=== PATIENT | female | born 1935 | race Caucasian/White ===

== ENCOUNTER 2018-08-31 16:06 | Inpatient (IN) ==
[2018-08-31] MEDS ORDERED: MAGNESIUM HYDROXIDE SUSP 30 ML UDCUP PO PRN (16:15)
[2018-08-31] MEDS ORDERED: ACETAMINOPHEN 325 MG TABLET PO PRN (16:15)
[2018-08-31] MEDS ORDERED: MORPHINE 4 MG/1 ML VIAL IV PRN (16:15)
[2018-08-31] MEDS ORDERED: traMADol 50 MG TABLET PO PRN (16:15)
[2018-08-31] MEDS: SODIUM CHLORIDE 0.45% 1,000 ML IV SCH (19:08)
[2018-08-31] MEDS: PANTOPRAZOLE 40 MG TABLET PO SCH (19:09)
[2018-08-31 19:29] LABS: Basophils # 0.1 10*3/uL (0.0-0.2); Basophils % 1.1 % (0.0-0.8); Eosinophils # 0.2 10*3/uL (0.0-0.87); Hematocrit 33.1 VOL% (35.7-47.0); Hemoglobin 9.8 GM/DL (12.0-16.0); Immature Granulocytes % 0.4 %; Immature Granulocytes Absolute 0.05 #; Lymphocytes # 3.1 10*3/uL (1.4-4.0); Lymphocytes % 27.1 % (21.3-54.2); Mean Corpuscular HGB Conc 29.6 GM/DL (32-36); Mean Corpuscular Volume 85.8 FL (87-102); Mean Platelet Volume 11.4 FL (9.6-12.0); Monocytes % 10.6 % (1.7-12.7); Neutrophils % 58.8 % (38.7-73.9); Platelet Count 343 T/CUMM (130-400); Red Blood Count 3.86 MC/CUMM (3.8-5.5); Red Cell Distribution Width 20.2 % (9.3-17.3); White Blood Count 11.4 T/CUMM (4-12)
[2018-08-31 19:42] LABS: PT Patient Result 21.5 SECS
[2018-08-31 19:54] LABS: Albumin 2.8 G/DL (3.4-5.0); Bilirubin,Total 0.8 MG/DL (0.2-1.0); Calcium 8.4 MG/DL (8.5-10.1); Osmolality,Calculated 284.3 MOS/KG (273-304); Total Protein 7.1 G/DL (6.4-8.3)
[2018-08-31] MEDS: GABAPENTIN 400 MG CAPSULE PO SCH (21:08)
[2018-08-31] MEDS: CALCIUM (CARBONATE) 500 MG TABLET PO SCH (21:08)
[2018-08-31] MEDS: SOTALOL 80 MG TABLET PO SCH (21:09)
[2018-08-31] MEDS: ATORVASTATIN 40 MG TABLET PO SCH (21:09)
[2018-08-31] MEDS: AMITRIPTYLINE 50 MG TABLET PO SCH (21:09)
[2018-08-31] MEDS: VANCOMYCIN INJ 1,000 MG in SODIUM CHLORIDE 0.9% 250 ML IV SCH (22:50)
[2018-08-31 23:31] LABS: Apearance,Urine Slightly Hazy (Clear); Bacteria,Urine Occasional /HPF (Few); Bilirubin,Urine Negative (Negative); Blood, Urine Negative (Negative); Glucose,Urine (UA) Negative (Negative); Hyaline Casts,Urine 5 /LPF (0-3); Ketones,Urine Negative (Negative); Mucus,Urine Occasional /LPF (Occasional); Nitrite,Urine Negative (Negative); Protein,Urine 100 MG/DL; RBC,Urine 5 /HPF (0-4); Renal Epithelial Cells,Urine Occasional /HPF (<1); Squamous Epithelial Cell,Urine Occasional /HPF (0-10); Urine Color Yellow (Yellow); Urine Specific Gravity 1.012 (1.001-1.035); Urine Urobilinogen < 2.0 EU/DL (0.2-1.0); WBC,Urine 18 /HPF (0-6)
[2018-09-01] MEDS: SODIUM CHLORIDE 0.45% 1,000 ML IV SCH ×2 (04:59→13:29)
[2018-09-01 07:38] LABS: INR 2.1
[2018-09-01 07:46] LABS: PT Patient Result 22.7 SECS
[2018-09-01 08:15] LABS: Calcium 8.2 MG/DL (8.5-10.1); Osmolality,Calculated 284.3 MOS/KG (273-304); Risk Ratio 3.14; VLDL CHOLESTEROL 22.8 MG/DL
[2018-09-01] MEDS: SOTALOL 80 MG TABLET PO SCH (13:26)
[2018-09-01] MEDS: DILTIAZEM CD 240 MG CAPSULE PO SCH (13:26)
[2018-09-01] MEDS: GABAPENTIN 400 MG CAPSULE PO SCH (13:34)
[2018-09-01] MEDS: PANTOPRAZOLE 40 MG TABLET PO SCH (13:34)
[2018-09-01] MEDS: CALCIUM (CARBONATE) 500 MG TABLET PO SCH (13:34)
[2018-09-01] MEDS: MULTIVITAMIN (CENTRUM) TABLET PO SCH (13:34)
[2018-09-01] MEDS: RALOXIFENE 60 MG TABLET PO SCH (13:34)
[2018-09-01] MEDS: FUROSEMIDE 40 MG TABLET PO SCH (13:34)
[2018-09-01] MEDS ORDERED: LIDOCAINE 1% 20 ML VIAL ONE (14:16)
[2018-09-01] MEDS ORDERED: LACTATED RINGERS 1,000 ML IV ONE (16:16)
[2018-09-01] MEDS ORDERED: PROPOFOL 200 MG/20 ML VIAL IV ONE (16:16)
[2018-09-01] MEDS ORDERED: ETOMIDATE 40 MG/20 ML VIAL IV ONE (16:16)
[2018-09-01] MEDS: HYDROmorphone 2 MG/1 ML VIAL IV PRN (17:03)
[2018-09-01] MEDS: VANCOMYCIN INJ 1,000 MG in SODIUM CHLORIDE 0.9% 250 ML IV SCH (21:44)
[2018-09-02] MEDS: AMITRIPTYLINE 50 MG TABLET PO SCH ×2 (00:45→21:46)
[2018-09-02] MEDS: SOTALOL 80 MG TABLET PO SCH ×3 (00:45→21:36)
[2018-09-02] MEDS: ATORVASTATIN 40 MG TABLET PO SCH ×2 (00:55→21:36)
[2018-09-02] MEDS: GABAPENTIN 400 MG CAPSULE PO SCH ×3 (00:55→21:47)
[2018-09-02] MEDS: CALCIUM (CARBONATE) 500 MG TABLET PO SCH ×3 (00:55→21:36)
[2018-09-02] MEDS: SODIUM CHLORIDE 0.45% 1,000 ML IV SCH ×2 (00:56→23:42)
[2018-09-02 04:41] LABS: Basophils # 0.1 10*3/uL (0.0-0.2); Basophils % 0.6 % (0.0-0.8); Eosinophils # 0.3 10*3/uL (0.0-0.87); Eosinophils % 2.4 % (0.00-10.9); Hematocrit 29.7 VOL% (35.7-47.0); Hemoglobin 8.9 GM/DL (12.0-16.0); Immature Granulocytes % 0.4 %; Immature Granulocytes Absolute 0.06 #; Lymphocytes # 2.4 10*3/uL (1.4-4.0); Lymphocytes % 17.8 % (21.3-54.2); Mean Corpuscular Volume 85.6 FL (87-102); Mean Platelet Volume 11.5 FL (9.6-12.0); Monocytes % 11.7 % (1.7-12.7); Neutrophils % 67.1 % (38.7-73.9); Platelet Count 322 T/CUMM (130-400); Red Blood Count 3.47 MC/CUMM (3.8-5.5); Red Cell Distribution Width 19.6 % (9.3-17.3); White Blood Count 13.6 T/CUMM (4-12)
[2018-09-02] MEDS: HYDROmorphone 2 MG/1 ML VIAL IV PRN (04:44)
[2018-09-02 04:50] LABS: INR 1.6; PT Patient Result 17.8 SECS
[2018-09-02 05:00] LABS: Calcium 8.4 MG/DL (8.5-10.1); Osmolality,Calculated 280.4 MOS/KG (273-304)
[2018-09-02] MEDS ORDERED: CLINDAMYCIN INJ 600 MG in PREMIX 1 EACH IV SCH (09:00)
[2018-09-02] MEDS: ONDANSETRON 4 MG/2 ML VIAL IV PRN ×2 (12:27→17:30)
[2018-09-02] MEDS: ASPIRIN EC 325 MG TABLET PO SCH (14:41)
[2018-09-02] MEDS: DILTIAZEM CD 240 MG CAPSULE PO SCH ×2 (14:42→16:28)
[2018-09-02] MEDS: MULTIVITAMIN (CENTRUM) TABLET PO SCH (14:42)
[2018-09-02] MEDS: FUROSEMIDE 40 MG TABLET PO SCH (14:42)
[2018-09-02] MEDS: RALOXIFENE 60 MG TABLET PO SCH (14:42)
[2018-09-02] MEDS: PANTOPRAZOLE 40 MG TABLET PO SCH (14:43)
[2018-09-02] MEDS ORDERED: MORPHINE 4 MG/1 ML VIAL IV PRN ×2 (15:37)
[2018-09-02] MEDS ORDERED: IBUPROFEN 400 MG TABLET PO PRN (15:37)
[2018-09-02] MEDS: cefTRIAXone 1,000 MG in SYRINGE 1 EACH IV SCH (16:28)
[2018-09-02] MEDS: WARFARIN 2.5 MG TABLET PO SCH (17:28)
[2018-09-03] MEDS: AMITRIPTYLINE 50 MG TABLET PO SCH ×2 (00:11→20:41)
[2018-09-03 06:01] LABS: Basophils # 0.1 10*3/uL (0.0-0.2); Basophils % 0.5 % (0.0-0.8); Eosinophils # 0.1 10*3/uL (0.0-0.87); Eosinophils % 0.6 % (0.00-10.9); Hematocrit 30.5 VOL% (35.7-47.0); Immature Granulocytes % 0.5 %; Immature Granulocytes Absolute 0.07 #; Lymphocytes # 2.9 10*3/uL (1.4-4.0); Lymphocytes % 20.5 % (21.3-54.2); Mean Corpuscular HGB Conc 29.5 GM/DL (32-36); Mean Corpuscular Volume 86.2 FL (87-102); Monocytes % 9.5 % (1.7-12.7); Neutrophils % 68.4 % (38.7-73.9); Platelet Count 358 T/CUMM (130-400); Red Blood Count 3.54 MC/CUMM (3.8-5.5); Red Cell Distribution Width 19.5 % (9.3-17.3); White Blood Count 13.9 T/CUMM (4-12)
[2018-09-03 06:12] LABS: INR 1.9
[2018-09-03 06:21] LABS: PT Patient Result 20.7 SECS
[2018-09-03] MEDS: ASPIRIN EC 325 MG TABLET PO SCH (08:17)
[2018-09-03] MEDS: CALCIUM (CARBONATE) 500 MG TABLET PO SCH ×2 (08:17→20:41)
[2018-09-03] MEDS: PANTOPRAZOLE 40 MG TABLET PO SCH (08:18)
[2018-09-03] MEDS: DILTIAZEM CD 240 MG CAPSULE PO SCH (08:18)
[2018-09-03] MEDS: SOTALOL 80 MG TABLET PO SCH ×2 (08:18→20:40)
[2018-09-03] MEDS: MULTIVITAMIN (CENTRUM) TABLET PO SCH (08:18)
[2018-09-03] MEDS: FUROSEMIDE 40 MG TABLET PO SCH (08:18)
[2018-09-03] MEDS: GABAPENTIN 400 MG CAPSULE PO SCH ×2 (08:19→20:41)
[2018-09-03] MEDS: cefTRIAXone 1,000 MG in SYRINGE 1 EACH IV SCH (08:19)
[2018-09-03] MEDS: RALOXIFENE 60 MG TABLET PO SCH (08:19)
[2018-09-03] MEDS: SODIUM CHLORIDE 0.45% 1,000 ML IV SCH (09:29)
[2018-09-03] MEDS: WARFARIN 2.5 MG TABLET PO SCH (17:04)
[2018-09-03] MEDS: ATORVASTATIN 40 MG TABLET PO SCH (20:41)
[2018-09-04 05:52] LABS: INR 2.1
[2018-09-04 05:55] LABS: PT Patient Result 22.3 SECS
[2018-09-04 06:05] LABS: Albumin 2.1 G/DL (3.4-5.0); Bilirubin,Total 0.8 MG/DL (0.2-1.0); Calcium 8.5 MG/DL (8.5-10.1); Osmolality,Calculated 281.1 MOS/KG (273-304); Total Protein 5.8 G/DL (6.4-8.3)
[2018-09-04 07:47] VITALS: BP 107/58
[2018-09-04] MEDS: cefTRIAXone 1,000 MG in SYRINGE 1 EACH IV SCH (09:13)
[2018-09-04] MEDS: RALOXIFENE 60 MG TABLET PO SCH (09:14)
[2018-09-04] MEDS: DILTIAZEM CD 240 MG CAPSULE PO SCH (09:14)
[2018-09-04] MEDS: GABAPENTIN 400 MG CAPSULE PO SCH (09:14)
[2018-09-04] MEDS: ASPIRIN EC 325 MG TABLET PO SCH (09:15)
[2018-09-04] MEDS: PANTOPRAZOLE 40 MG TABLET PO SCH (09:15)
[2018-09-04] MEDS: MULTIVITAMIN (CENTRUM) TABLET PO SCH (09:15)
[2018-09-04] MEDS: FUROSEMIDE 40 MG TABLET PO SCH (09:15)
[2018-09-04] MEDS: CALCIUM (CARBONATE) 500 MG TABLET PO SCH (09:15)
[2018-09-07] MEDS ORDERED: WARFARIN 2.5 MG TABLET PO SCH (18:00)
== END 2018-09-04 10:55 | disposition home health service (06) | DRG 605 ==
LOC: N.2E → OBSVTOIN 16:57
PROVIDERS: ADMIT Family Medicine; ATTEND Family Medicine

== ENCOUNTER 2018-11-15 10:28 | Inpatient (IN) ==
[2018-11-15] MEDS ORDERED: SODIUM CHLORIDE 0.9% 500 ML IV STA (10:48)
[2018-11-15 11:03] LABS: Basophils % 0.4 % (0.0-0.8); Eosinophils # 0.1 10*3/uL (0.0-0.87); Eosinophils % 0.8 % (0.00-10.9); Hematocrit 33.8 VOL% (35.7-47.0); Hemoglobin 10.5 GM/DL (12.0-16.0); Immature Granulocytes % 0.4 %; Immature Granulocytes Absolute 0.04 #; Lymphocytes # 2.2 10*3/uL (1.4-4.0); Lymphocytes % 21.1 % (21.3-54.2); Mean Corpuscular HGB Conc 31.1 GM/DL (32-36); Mean Corpuscular Volume 85.4 FL (87-102); Mean Platelet Volume 12.5 FL (9.6-12.0); Neutrophils % 64.3 % (38.7-73.9); Platelet Count 194 T/CUMM (130-400); Red Blood Count 3.96 MC/CUMM (3.8-5.5); White Blood Count 10.3 T/CUMM (4-12)
[2018-11-15 11:11] LABS: INR 1.4; PT Patient Result 15.1 SECS; Partial Thromboplastin Time 32.7 SECS (0-40)
[2018-11-15 11:23] LABS: Alanine Aminotransferase 18 U/L (13-56); Albumin 2.2 G/DL (3.4-5.0); Alkaline Phosphatase 83 U/L (45-117); Aspartate Amino Transferase 27 U/L (0-37); Bilirubin,Total < 0.39 MG/DL (0.2-1.0); Blood Urea Nitrogen 46 MG/DL (7-18); Calcium 8.4 MG/DL (8.5-10.1); Glucose 91 MG/DL (74-106); Osmolality,Calculated 286.7 MOS/KG (273-304); Total Protein 5.7 G/DL (6.4-8.3)
[2018-11-15 11:56] LABS: Apearance,Urine Slightly Hazy (Clear); Bilirubin,Urine Negative (Negative); Blood, Urine Negative (Negative); Glucose,Urine (UA) Negative (Negative); Hyaline Casts,Urine 22 /LPF (0-3); Ketones,Urine Negative (Negative); Mucus,Urine Occasional /LPF (Occasional); Nitrite,Urine Negative (Negative); Protein,Urine 100 MG/DL; RBC,Urine 1 /HPF (0-4); Squamous Epithelial Cell,Urine Occasional /HPF (0-10); Urine Color Yellow (Yellow); Urine Specific Gravity 1.016 (1.001-1.035); Urine Urobilinogen < 2.0 EU/DL (0.2-1.0); WBC,Urine 2 /HPF (0-6)
[2018-11-15] MEDS ORDERED: cefTRIAXone 1,000 MG in SODIUM CHLORIDE 0.9% 100 ML IV STA (12:01)
[2018-11-15] MEDS ORDERED: ONDANSETRON 4 MG/2 ML VIAL IV PRN (12:07)
[2018-11-15] MEDS ORDERED: ACETAMINOPHEN 325 MG TABLET PO PRN (12:07)
[2018-11-15 12:19] LABS: Sedimentation Rate-Westergren 74 MM/HR (0-30)
[2018-11-15] MEDS: SODIUM CHLORIDE 0.45% 1,000 ML IV SCH (15:17)
[2018-11-15] MEDS: WARFARIN 2.5 MG TABLET PO SCH (18:23)
[2018-11-15] MEDS: ATORVASTATIN 40 MG TABLET PO SCH (20:39)
[2018-11-15] MEDS: GABAPENTIN 400 MG CAPSULE PO SCH (20:39)
[2018-11-15] MEDS: CALCIUM (CARBONATE) 500 MG TABLET PO SCH (20:39)
[2018-11-15] MEDS: SOTALOL 80 MG TABLET PO SCH (20:40)
[2018-11-15] MEDS: POTASSIUM CHLORIDE 10 MEQ TABLET PO SCH (20:40)
[2018-11-16] MEDS: GABAPENTIN 400 MG CAPSULE PO SCH ×2 (08:28→21:03)
[2018-11-16] MEDS: RALOXIFENE 60 MG TABLET PO SCH (08:29)
[2018-11-16] MEDS: FUROSEMIDE 20 MG TABLET PO SCH (08:29)
[2018-11-16] MEDS: DILTIAZEM CD 240 MG CAPSULE PO SCH (08:29)
[2018-11-16] MEDS: ASPIRIN EC 325 MG TABLET PO SCH (08:30)
[2018-11-16] MEDS: CALCIUM (CARBONATE) 500 MG TABLET PO SCH ×2 (08:30→21:19)
[2018-11-16] MEDS: MULTIVITAMIN (CENTRUM) TABLET PO SCH (08:31)
[2018-11-16] MEDS: PANTOPRAZOLE 40 MG TABLET PO SCH (08:31)
[2018-11-16] MEDS: SODIUM CHLORIDE 0.45% 1,000 ML IV SCH (08:31)
[2018-11-16] MEDS: SOTALOL 80 MG TABLET PO SCH ×2 (08:31→21:03)
[2018-11-16] MEDS: cefTRIAXone 1,000 MG in SYRINGE 1 EACH IV SCH (11:51)
[2018-11-16] MEDS: WARFARIN 2.5 MG TABLET PO SCH ×2 (18:18→18:23)
[2018-11-16] MEDS: ATORVASTATIN 40 MG TABLET PO SCH (21:03)
[2018-11-16] MEDS: POTASSIUM CHLORIDE 10 MEQ TABLET PO SCH (21:03)
[2018-11-16] MEDS: ZINC OXIDE PASTE 113 GM TUBE TOP SCH (21:21)
[2018-11-17] MEDS: SODIUM CHLORIDE 0.45% 1,000 ML IV SCH ×2 (04:45→21:40)
[2018-11-17 05:12] LABS: Basophils # 0.1 10*3/uL (0.0-0.2); Basophils % 0.5 % (0.0-0.8); Eosinophils # 0.3 10*3/uL (0.0-0.87); Hematocrit 30.1 VOL% (35.7-47.0); Hemoglobin 9.3 GM/DL (12.0-16.0); Immature Granulocytes % 0.4 %; Immature Granulocytes Absolute 0.04 #; Lymphocytes # 2.5 10*3/uL (1.4-4.0); Lymphocytes % 22.9 % (21.3-54.2); Mean Corpuscular HGB Conc 30.9 GM/DL (32-36); Mean Corpuscular Volume 84.8 FL (87-102); Mean Platelet Volume 12.5 FL (9.6-12.0); Monocytes % 14.5 % (1.7-12.7); NRBC # 0.02 10*3/uL; Neutrophils % 58.7 % (38.7-73.9); Platelet Count 276 T/CUMM (130-400); Red Blood Count 3.55 MC/CUMM (3.8-5.5); Red Cell Distribution Width 18.8 % (9.3-17.3)
[2018-11-17 05:51] LABS: Osmolality,Calculated 278.1 MOS/KG (273-304)
[2018-11-17 06:05] LABS: Thyroid Stimulating Hormone 2.19 uIU/ml (0.358-3.74)
[2018-11-17 08:05] LABS: INR 1.5; PT Patient Result 16.7 SECS
[2018-11-17] MEDS: FUROSEMIDE 20 MG TABLET PO SCH (08:53)
[2018-11-17] MEDS: MULTIVITAMIN (CENTRUM) TABLET PO SCH (08:53)
[2018-11-17] MEDS: RALOXIFENE 60 MG TABLET PO SCH (08:53)
[2018-11-17] MEDS: CALCIUM (CARBONATE) 500 MG TABLET PO SCH ×2 (08:54→21:39)
[2018-11-17] MEDS: ASPIRIN EC 325 MG TABLET PO SCH (08:54)
[2018-11-17] MEDS: PANTOPRAZOLE 40 MG TABLET PO SCH (08:54)
[2018-11-17] MEDS: SOTALOL 80 MG TABLET PO SCH ×2 (08:54→21:40)
[2018-11-17] MEDS: DILTIAZEM CD 240 MG CAPSULE PO SCH (08:55)
[2018-11-17] MEDS: GABAPENTIN 400 MG CAPSULE PO SCH ×2 (08:56→21:39)
[2018-11-17] MEDS: ZINC OXIDE PASTE 113 GM TUBE TOP SCH ×2 (09:03→21:40)
[2018-11-17] MEDS: cefTRIAXone 1,000 MG in SYRINGE 1 EACH IV SCH (09:03)
[2018-11-17] MEDS: WARFARIN 2.5 MG TABLET PO SCH (17:50)
[2018-11-17] MEDS: ATORVASTATIN 40 MG TABLET PO SCH (21:39)
[2018-11-17] MEDS: POTASSIUM CHLORIDE 10 MEQ TABLET PO SCH (21:39)
[2018-11-18 02:53] LABS: Basophils # 0.1 10*3/uL (0.0-0.2); Basophils % 0.4 % (0.0-0.8); Eosinophils # 0.4 10*3/uL (0.0-0.87); Eosinophils % 3.3 % (0.00-10.9); Hemoglobin 9.6 GM/DL (12.0-16.0); Immature Granulocytes % 0.3 %; Immature Granulocytes Absolute 0.03 #; Lymphocytes # 2.6 10*3/uL (1.4-4.0); Lymphocytes % 22.2 % (21.3-54.2); Mean Corpuscular Volume 83.1 FL (87-102); Mean Platelet Volume 12.1 FL (9.6-12.0); Monocytes % 11.6 % (1.7-12.7); NRBC # 0.04 10*3/uL; Neutrophils % 62.2 % (38.7-73.9); Platelet Count 312 T/CUMM (130-400); Red Blood Count 3.61 MC/CUMM (3.8-5.5); Red Cell Distribution Width 18.6 % (9.3-17.3); White Blood Count 11.7 T/CUMM (4-12)
[2018-11-18] MEDS: GABAPENTIN 400 MG CAPSULE PO SCH ×2 (08:40→21:14)
[2018-11-18] MEDS: ASPIRIN EC 325 MG TABLET PO SCH (08:41)
[2018-11-18] MEDS: CALCIUM (CARBONATE) 500 MG TABLET PO SCH ×2 (08:41→21:14)
[2018-11-18] MEDS: FUROSEMIDE 20 MG TABLET PO SCH (08:41)
[2018-11-18] MEDS: DILTIAZEM CD 240 MG CAPSULE PO SCH (08:41)
[2018-11-18] MEDS: PANTOPRAZOLE 40 MG TABLET PO SCH (08:41)
[2018-11-18] MEDS: RALOXIFENE 60 MG TABLET PO SCH (08:41)
[2018-11-18] MEDS: SOTALOL 80 MG TABLET PO SCH ×2 (08:41→21:13)
[2018-11-18] MEDS: cefTRIAXone 1,000 MG in SYRINGE 1 EACH IV SCH (08:47)
[2018-11-18] MEDS: MULTIVITAMIN (CENTRUM) TABLET PO SCH (08:47)
[2018-11-18] MEDS: ZINC OXIDE PASTE 113 GM TUBE TOP SCH ×2 (09:45→21:22)
[2018-11-18] MEDS: WARFARIN 2.5 MG TABLET PO SCH (17:07)
[2018-11-18] MEDS: SODIUM CHLORIDE 0.45% 1,000 ML IV SCH (18:50)
[2018-11-18] MEDS: CITALOPRAM 20 MG TABLET PO SCH (21:13)
[2018-11-18] MEDS: POTASSIUM CHLORIDE 10 MEQ TABLET PO SCH (21:13)
[2018-11-18] MEDS: ATORVASTATIN 40 MG TABLET PO SCH (21:14)
[2018-11-19] MEDS: SODIUM CHLORIDE 0.45% 1,000 ML IV SCH ×2 (03:49→21:34)
[2018-11-19 05:18] LABS: Basophils # 0.1 10*3/uL (0.0-0.2); Basophils % 0.4 % (0.0-0.8); Eosinophils # 0.2 10*3/uL (0.0-0.87); Eosinophils % 2.2 % (0.00-10.9); Hematocrit 31.2 VOL% (35.7-47.0); Hemoglobin 9.7 GM/DL (12.0-16.0); Immature Granulocytes % 0.4 %; Immature Granulocytes Absolute 0.04 #; Lymphocytes # 2.7 10*3/uL (1.4-4.0); Lymphocytes % 23.9 % (21.3-54.2); Mean Corpuscular HGB Conc 31.1 GM/DL (32-36); Mean Corpuscular Volume 83.4 FL (87-102); Mean Platelet Volume 11.9 FL (9.6-12.0); Monocytes % 12.2 % (1.7-12.7); NRBC # 0.04 10*3/uL; Neutrophils % 60.9 % (38.7-73.9); Platelet Count 353 T/CUMM (130-400); Red Blood Count 3.74 MC/CUMM (3.8-5.5); Red Cell Distribution Width 18.9 % (9.3-17.3); White Blood Count 11.1 T/CUMM (4-12)
[2018-11-19 05:26] LABS: INR 1.6; PT Patient Result 17.1 SECS
[2018-11-19 05:38] LABS: Albumin 1.5 G/DL (3.4-5.0); Bilirubin,Total 0.6 MG/DL (0.2-1.0); Calcium 8.1 MG/DL (8.5-10.1); Osmolality,Calculated 282.8 MOS/KG (273-304); Total Protein 5.8 G/DL (6.4-8.3)
[2018-11-19] MEDS: cefTRIAXone 1,000 MG in SYRINGE 1 EACH IV SCH (09:29)
[2018-11-19] MEDS: SOTALOL 80 MG TABLET PO SCH ×2 (09:30→21:32)
[2018-11-19] MEDS: FUROSEMIDE 20 MG TABLET PO SCH (09:30)
[2018-11-19] MEDS: ZINC OXIDE PASTE 113 GM TUBE TOP SCH ×2 (09:30→21:34)
[2018-11-19] MEDS: CALCIUM (CARBONATE) 500 MG TABLET PO SCH ×2 (09:30→21:32)
[2018-11-19] MEDS: MULTIVITAMIN (CENTRUM) TABLET PO SCH (09:30)
[2018-11-19] MEDS: RALOXIFENE 60 MG TABLET PO SCH (09:30)
[2018-11-19] MEDS: ASPIRIN EC 325 MG TABLET PO SCH (09:30)
[2018-11-19] MEDS: PANTOPRAZOLE 40 MG TABLET PO SCH (09:30)
[2018-11-19] MEDS: DILTIAZEM CD 180 MG CAPSULE PO SCH (09:31)
[2018-11-19] MEDS: GABAPENTIN 400 MG CAPSULE PO SCH ×2 (11:50→21:31)
[2018-11-19] MEDS: WARFARIN 2.5 MG TABLET PO SCH (17:07)
[2018-11-19] MEDS: CITALOPRAM 20 MG TABLET PO SCH (21:32)
[2018-11-19] MEDS: ATORVASTATIN 40 MG TABLET PO SCH (21:32)
[2018-11-19] MEDS: POTASSIUM CHLORIDE 10 MEQ TABLET PO SCH (21:32)
[2018-11-20 04:55] LABS: Basophils # 0.1 10*3/uL (0.0-0.2); Basophils % 0.8 % (0.0-0.8); Eosinophils # 0.3 10*3/uL (0.0-0.87); Eosinophils % 2.4 % (0.00-10.9); Hematocrit 31.6 VOL% (35.7-47.0); Hemoglobin 9.9 GM/DL (12.0-16.0); Immature Granulocytes % 0.2 %; Immature Granulocytes Absolute 0.02 #; Lymphocytes # 2.6 10*3/uL (1.4-4.0); Lymphocytes % 24.7 % (21.3-54.2); Mean Corpuscular HGB Conc 31.3 GM/DL (32-36); Mean Corpuscular Volume 83.6 FL (87-102); Mean Platelet Volume 11.6 FL (9.6-12.0); Monocytes % 12.7 % (1.7-12.7); NRBC # 0.02 10*3/uL; Neutrophils % 59.2 % (38.7-73.9); Platelet Count 390 T/CUMM (130-400); Red Blood Count 3.78 MC/CUMM (3.8-5.5); Red Cell Distribution Width 18.7 % (9.3-17.3); White Blood Count 10.6 T/CUMM (4-12)
[2018-11-20 05:06] LABS: INR 1.8; PT Patient Result 19.8 SECS
[2018-11-20 05:33] LABS: Albumin 1.5 G/DL (3.4-5.0); Bilirubin,Total 0.9 MG/DL (0.2-1.0); Calcium 8.4 MG/DL (8.5-10.1); Osmolality,Calculated 283.8 MOS/KG (273-304); Total Protein 5.7 G/DL (6.4-8.3)
[2018-11-20] MEDS: SODIUM CHLORIDE 0.45% 1,000 ML IV SCH (06:21)
[2018-11-20] MEDS: MULTIVITAMIN (CENTRUM) TABLET PO SCH (09:03)
[2018-11-20] MEDS: FUROSEMIDE 20 MG TABLET PO SCH (09:03)
[2018-11-20] MEDS: DILTIAZEM CD 180 MG CAPSULE PO SCH (09:04)
[2018-11-20] MEDS: PANTOPRAZOLE 40 MG TABLET PO SCH (09:04)
[2018-11-20] MEDS: CALCIUM (CARBONATE) 500 MG TABLET PO SCH (09:04)
[2018-11-20] MEDS: SOTALOL 80 MG TABLET PO SCH (09:04)
[2018-11-20] MEDS: ASPIRIN EC 325 MG TABLET PO SCH (09:05)
[2018-11-20] MEDS: ZINC OXIDE PASTE 113 GM TUBE TOP SCH (09:05)
[2018-11-20] MEDS: RALOXIFENE 60 MG TABLET PO SCH (09:05)
[2018-11-20] MEDS: GABAPENTIN 400 MG CAPSULE PO SCH (09:12)
[2018-11-20 09:30] VITALS: BP 110/67
[2018-11-20] MEDS: cefTRIAXone 1,000 MG in SYRINGE 1 EACH IV SCH (10:02)
== END 2018-11-20 13:00 | disposition swing bed (61) | DRG 683 ==
LOC: EDBD → EDUNIT# → N.ED 10:28 → N.EDINP 12:07 → N.2E 14:16 → UNDODISIN 11-20 11:30
PROVIDERS: ADMIT Family Medicine; ATTEND Family Medicine